=== PATIENT | female | born 1930 | race Hispanic/Latino ===

== ENCOUNTER 2018-09-26 17:06 | Emergency (ER) | payer MEDICARE ==
[~2018-09-26 17:06] MED LIST: AEC81 PO; AMAN100C12 PO; BENZ0.5T43 PO; CARB-38 PO; CLON0.1T PO; CYAN10007 IJ; ISOS30TA6 PO; METO50TA18 PO; NITR0.4T50 SL; ZOLP5TAB8 PO
[2018-09-26] MEDS ORDERED: TETANUS/DIPHTHERIA TOXOID [ADULT] 0.5 ML VIAL IM ONE (17:07)
== END 2018-09-26 21:09 | disposition home or self-care (01) ==
LOC: EDH 17:06
DX: S51.801A Unspecified open wound of right forearm, initial encounter (principal); G20 Parkinson's disease; I10 Essential (primary) hypertension; Z88.0 Allergy status to penicillin; Z91.041 Radiographic dye allergy status; W18.39XA Other fall on same level, initial encounter; Y93.89 Activity, other specified; Y92.89 Other specified places as the place of occurrence of the external cause; Y99.8 Other external cause status; S60.221A Contusion of right hand, initial encounter
CPT/HCPCS: 73130; 90714; 96372